=== PATIENT | female | born 1935 | race Caucasian/White ===

== ENCOUNTER 2017-08-25 12:36 | Observation (INO) | payer OTHER ==
[~2017-08-25] VITALS: Ht 157.5 cm; Wt 70.7 kg
[~2017-08-25 12:36] MED LIST: ACID CONTROL20 MG PO; ASPIR 8181 M1 PO; CALCIUM 600 +1 EACH PO; INDERAL LA160 MG PO; METFORMIN HCL750 MG PO; SIMVASTATIN40 MG PO; VICODIN,LORT1 TABLET PO; VITAMIN C500 M1 PO
[2017-08-25 15:51] LABS: EOSINOPHIL (%) 0.7 % (0-5); EOSINOPHIL COUNT 0.1 K/uL (0-0.3); HEMATOCRIT 34.4 % (36.0-46.0); IMMATURE GRANULOCYTE (%) 0.5 % (0.0-0.7); INSTRUMENT ABS NEUTROPHIL CT 5.2 K/uL; LYMPHOCYTE COUNT 1.6 K/uL (1.0-2.8); MCH 32.2 PG (29.0-34.0); MCHC 32.6 G/DL (30.0-36.0); MCV 98.9 FL (83-99); MEAN PLAT.VOLUME 11.4 uM^3 (9.5-12.4); MONOCYTE (%) 8.8 % (3-12); MONOCYTE COUNT 0.7 K/uL (0-0.8); NEUTROPHIL (%) 68.3 % (45-76); NEUTROPHIL COUNT 5.2 K/uL (1.8-6.4); PLATELET COUNT 170 K/uL (156-360); RBC DIS.WIDTH-CV 12.8 % (11.8-14.6); RBC DIS.WIDTH-SD 46.1 % (39-53); RED BLOOD COUNT 3.48 M/uL (3.80-5.20); WHITE BLOOD COUNT 7.6 K/uL (4.1-10.2)
[2017-08-25 16:02] LABS: CHLORIDE 109 mEq/L (99-109); POTASSIUM 4.6 mEq/L (3.7-5.4); SODIUM 144 mEq/L (136-147)
[2017-08-25 16:04] LABS: GLUCOSE 95 mg/dL (70-99)
[2017-08-25 16:05] LABS: ANION GAP 15 MEQ/L (2-14)
[2017-08-25 16:06] LABS: TOTAL BILIRUBIN 0.2 mg/dL (0.0-1.0)
[2017-08-25 16:08] LABS: ALKALINE PHOSPHATASE 50 IU/L (3-129); GFR ESTIMATE (CALCULATED) > 59 mL/min/
[2017-08-25 16:09] LABS: UREA NITROGEN (BUN) 28 mg/dL (9-23)
[2017-08-25 19:40] LABS: ADD MIUA? NO; BILIRUBIN NEGATIVE; BLOOD NEGATIVE; COLOR STRAW ((YELLOW)); GLUCOSE (STRIP) NEGATIVE; KETONES NEGATIVE; LEUKOCYTES NEGATIVE; NITRITE NEGATIVE; PROTEIN (STRIP) NEGATIVE; SPECIFIC GRAVITY 1.009 (1.000-1.030); UCUL ADDED? NO; UROBILINOGEN 0.2 MG/DL (0.2-1.0)
[2017-08-25] MEDS ORDERED: HYDROCODON-ACE1 EAC7 PO (21:17)
[2017-08-25] MEDS ORDERED: METOPROLOL SUCC50 MG PO (21:19)
[2017-08-25] MEDS ORDERED: LISINOPRIL40 MG PO (21:19)
[2017-08-25] MEDS ORDERED: PRAVASTATIN SOD40 MG PO (21:20)
[2017-08-25 21:21] VITALS: BP 136/62
[2017-08-25] MEDS ORDERED: GLUCOSAMINE S1000 M1 PO (21:21)
[2017-08-25] MEDS ORDERED: FISH OIL 1,2001 EAC6 PO (21:22)
[2017-08-25] MEDS ORDERED: VITAMIN D-3 401 EACH PO (21:24)
[2017-08-25] MEDS ORDERED: VITAMIN B-12500 MC3 PO (21:25)
[2017-08-25] MEDS ORDERED: VITAMIN B-6100 MG PO (21:26)
[2017-08-25 23:22] VITALS: BP 129/60
[2017-08-26 05:37] LABS: HEMATOCRIT 31.8 % (36.0-46.0); MCH 32.6 PG (29.0-34.0); MCHC 32.7 G/DL (30.0-36.0); MCV 99.7 FL (83-99); MEAN PLAT.VOLUME 11.6 uM^3 (9.5-12.4); PLATELET COUNT 164 K/uL (156-360); RBC DIS.WIDTH-CV 12.9 % (11.8-14.6); RBC DIS.WIDTH-SD 46.4 % (39-53); RED BLOOD COUNT 3.19 M/uL (3.80-5.20); WHITE BLOOD COUNT 7.6 K/uL (4.1-10.2)
[2017-08-26 06:20] LABS: ANION GAP 7 MEQ/L (2-14); CHLORIDE 110 MEQ/L (99-109); GFR ESTIMATE (CALCULATED) > 59 mL/min/; GLUCOSE 93 mg/dL (70-99); POTASSIUM 4.2 MEQ/L (3.7-5.4); SAMPLE HEMOLYSIS CHECK 0; SAMPLE ICTERIC CHECK 0; SAMPLE LIPEMIA CHECK 0; SODIUM 143 MEQ/L (136-147); UREA NITROGEN (BUN) 25 mg/dL (9-23)
[2017-08-26 08:17] VITALS: BP 160/74
[2017-08-26 11:04] VITALS: BP 131/62
[2017-08-26 17:11] VITALS: BP 139/63
[2017-08-26 20:00] VITALS: BP 137/64
[2017-08-26 23:29] VITALS: BP 145/65
[2017-08-27 03:12] VITALS: BP 131/80
[2017-08-27 08:00] VITALS: BP 138/71
[2017-08-27] MEDS ORDERED: LIDODERM 5% P1 PATCH TD (10:36)
[2017-08-27 12:16] VITALS: BP 124/61
== END 2017-08-27 17:11 | disposition home or self-care (01) ==
LOC: EME 12:36 → 5WEST 19:41 → EDOF 19:41 → ENRESERV 19:56 → 5WEST 20:58 → ENPENDDIS 08-27 → 5WEST 08-27 17:11
PROVIDERS: Emergency Medicine; Physician Assistant
DX: M17.0 Bilateral primary osteoarthritis of knee (principal); G89.29 Other chronic pain; M25.562 Pain in left knee; M25.561 Pain in right knee; R26.9 Unspecified abnormalities of gait and mobility; M21.061 Valgus deformity, not elsewhere classified, right knee; I10 Essential (primary) hypertension; E78.00 Pure hypercholesterolemia, unspecified; Z88.5 Allergy status to narcotic agent; E11.9 Type 2 diabetes mellitus without complications; Z79.891 Long term (current) use of opiate analgesic; Z79.82 Long term (current) use of aspirin; E78.5 Hyperlipidemia, unspecified; G43.909 Migraine, unspecified, not intractable, without status migrainosus; Z82.0 Family history of epilepsy and other diseases of the nervous system; Z82.5 Family history of asthma and other chronic lower respiratory diseases; Z83.3 Family history of diabetes mellitus
CPT/HCPCS: 71010; 73564; 80048; 80053; 81003; 85025; 85027; 99281; 99285; G0378; G8978 GP CM; G8979 CJ; G8980 GP CM; G8987 GO CL; G8988 GO CK; G8989 GO CL; J1650; J1885; J2270; J2405